=== PATIENT | male | born 1985 | race Caucasian/White ===

== ENCOUNTER 2020-02-26 14:04 | Emergency (ER) | payer SELFPAY ==
[~2020-02-26] VITALS: Ht 167.6 cm; Wt 79.4 kg
[2020-02-26 14:18] VITALS: BP 139/95
--- NOTE | 2020-02-26 16:34 | NUR ---
Patient discharged to home in stable condition. Written and verbal after care instructions given. Patient verbalizes understanding of instruction.
== END 2020-02-26 16:34 | disposition home or self-care (01) ==
LOC: ER 14:06
DX: M54.2 Cervicalgia (principal); R07.89 Other chest pain; M54.5 Low back pain; V49.49XA Driver injured in collision with other motor vehicles in traffic accident, initial encounter; Y93.89 Activity, other specified; Y92.488 Other paved roadways as the place of occurrence of the external cause; Y99.8 Other external cause status
CPT/HCPCS: 71045-TC; 72070-TC; 72100-TC; 72125-TC

== ENCOUNTER 2020-05-09 16:18 | Emergency (ER) | payer MEDICAID ==
[~2020-05-09] VITALS: Ht 167.6 cm; Wt 90.7 kg
[2020-05-09 16:24] VITALS: BP 160/101
[2020-05-09] MEDS ORDERED: IBUP-1955 PO (17:26)
== END 2020-05-09 17:46 | disposition home or self-care (01) ==
LOC: ER 16:19
DX: S62.310A Displaced fracture of base of second metacarpal bone, right hand, initial encounter for closed fracture (principal); I10 Essential (primary) hypertension; E11.9 Type 2 diabetes mellitus without complications; E78.00 Pure hypercholesterolemia, unspecified; Z79.899 Other long term (current) drug therapy; W01.198A Fall on same level from slipping, tripping and stumbling with subsequent striking against other object, initial encounter; Y93.89 Activity, other specified; Y92.89 Other specified places as the place of occurrence of the external cause; Y99.8 Other external cause status
CPT/HCPCS: 73130-TC